=== PATIENT | male | born 1945 | race Caucasian/White ===

== ENCOUNTER → 2021-07-14 11:34 | Outpatient (BNVA) | payer OTHER, SELFPAY | PROVIDERS: PCP Internal Medicine; Visit Provider Nurse Practitioner Family | DX: Z13.89 Encounter for screening for other disorder (principal) ==

== ENCOUNTER → 2022-02-26 10:04 | Outpatient (BNVA) | payer OTHER, SELFPAY | PROVIDERS: PCP Internal Medicine; Visit Provider Nurse Practitioner Family | DX: Z13.89 Encounter for screening for other disorder (principal) ==

== ENCOUNTER 2022-08-29 09:36 | Outpatient (AMB) | payer OTHER, SELFPAY ==
--- NOTE | 2022-08-29 09:39 | MHC.OFFVIS ---
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 The CPAP compliance report (05/31/22-08/28/22) reviewed with patient. Pt is on APAP 5-20 cmH2O. Usage days 97%, average usage 6 hours and 50 min. AHI 1.1 , median pressure is 8.3 Pt reports his memory is stable, denies difficulty of daily activity or driving but still has moment of forgetfulness. He uses calendar and daily routine diary which is help him to remind appointments. Pt currently takes Namenda 10 mg BID and Rivastigmine 4.6 mg TD daily. Pt tolerate with Rivastigmine patch. Pt did not tolerate Donepezil, he had massive diarrhea. 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 He meets his friends weekends.? Denies depression or anxiety. [facility] Medical History (Updated 12/20/21 @ 15:23 by June Hairston CNP) HLD (hyperlipidemia) HTN (hypertension) Osteoarthritis Surgical History (Updated 02/26/22 @ 10:12 by Sunshine Gonzalez CMA) H/O tooth extraction Hx of carpal tunnel repair Hx of knee surgery Hx of umbilical hernia repair Family History Mother HTN (hypertension) Father HTN (hypertension) Social History (Updated 08/29/22 @ 09:43 by Sunshine Gonzalez CMA) Household Members: Spouse Alcohol intake: current Alcohol intake frequency: holidays/special occasions only Patient Tobacco Use Status: Never used Tobacco Review of Systems Const All systems reviewed & are unremarkable except as noted in HPI and below Physical Exam Vital Signs: Last Vital Signs Pulse 61 08/29/22 09:43 BP 130/96 H 08/29/22 09:43 Pulse Ox 96 08/29/22 09:43 Const General: cooperative and healthy appearing Nutritional Appearance: average body habitus Orientation/consciousness: patient oriented x3 HEENT Head: Yes normocephalic Neck Neck: Yes full ROM and Yes supple Resp Effort & Inspection: normal respiratory effort and able to speak in complete sentences Neuro General: patient oriented x3, moves all extremities, no focal motor deficits and CN's II-XI intact bilaterally Cognition (Neuro): normal cognition Gait exam (Neuro): Other gait observations present (good stride but slow walking. ) Motor exam (neuro): 5/5 motor strength present throughout and no tremor noted Psych Appearance: grossly normal Mental Status: mental status grossly normal Speech and movement: Normal speech and movement present Affect: normal affect Attitude: cooperative Assessment & Plan Assessment & Plan (1) Dementia: Comment: A repeat Neuropsychology evaluation done in 11/2021. Result was consistent with a mild level of dementia. Code(s): F03.90 - Unspecified dementia, unspecified severity, without behavioral disturbance, psychotic disturbance, mood disturbance, and anxiety (2) EMELY on CPAP: Code(s): G47.33 - Obstructive sleep apnea (adult) (pediatric); Z99.89 - Dependence on other enabling machines and devices Plan Continue to use CPAP at [id number]. Stressed compliance, nightly and more than 4 hours. Continue to take memantine 10 mg BID and rivastigmine 4.6 mg TD patch daily. Monitor the side effects. Continue to do daily physical exercise and engage in cognitive and social activity. Maintain healthy and balanced diet.? Coding Level of Care Code Est Pt Level 4 (32936) Diagnoses Dementia F03.90 EMELY on CPAP G47.33; Z99.89
[2022-08-29 09:43] VITALS: BP 130/96; PULSE 61; O2SAT 96
== END 2022-08-29 10:06 | disposition home or self-care (01) ==
PROVIDERS: Visit Provider Nurse Practitioner Family
DX: F03.90 Unspecified dementia, unspecified severity, without behavioral disturbance, psychotic disturbance, mood disturbance, and anxiety (principal); G47.33 Obstructive sleep apnea (adult) (pediatric); Z99.89 Dependence on other enabling machines and devices
CPT/HCPCS: 99214

== ENCOUNTER → 2022-08-29 09:36 | Outpatient (BNVA) | payer OTHER, SELFPAY | PROVIDERS: Visit Provider Nurse Practitioner Family ==

== ENCOUNTER 2023-09-02 10:12 | Outpatient (AMB) | payer OTHER, SELFPAY ==
--- NOTE | 2023-09-02 10:23 | A.OFFVIS_ITS ---
Vital Signs 09/02/23 10:26 Height 6 ft Weight 200 lb 2 oz BMI 27.1 BP 90/58 L Blood Pressure Location Rt brachial Position Sitting Respiration 16 Pulse 79 Pulse Source Pulse Oximeter Pulse Oximetry (%) 94 Oxygen Delivery Method Room Air Intake Visit Reasons: 1yr follow up EMELY - LVM w/add Intake Note: Pt presents for one year follow up for EMELY. Manager House Required: No Allergies Seasonal Allergies Allergy (Mild, Verified 09/02/23 10:25) Itching Medication List - Last Reconciled 09/02/23 by Deysi Shannon MD citalopram 10 mg PO DAILY diltiazem HCl ER (DILT-XR) 120 mg PO DAILY glucosamine HCl 3,000 mg PO DAILY latanoprost 0.005% 1 drp ophthalmic (eye) DAILY lisinopril 2.5 mg PO DAILY loratadine 10 mg PO DAILY PRN memantine 10 mg PO BID rivastigmine 1 patch transdermal DAILY 90 days rosuvastatin 5 mg PO BEDTIME tamsulosin 0.4 mg PO DAILY HPI Comments Details: 78 y/o male patient presents for follow up of dementia and EMELY on CPAP. In the past month he has been sleeping from 12am to 3.30 pm and does not use CPAP consistently 90 day compliance report-06/04-09/03 98%usgae Average hrs used days 6hrs AHI 1 Pressure 5-20 He wakes up 2 days a week -in the morning to do volunteering ( cat skilled nursing)and watch car race. He is not exercising and has poor motivation. He walks the dog occasionally SHort term memory is mildly worse. Pt currently takes Namenda 10 mg BID and Rivastigmine 4.6 mg TD daily. Pt tolerate with Rivastigmine patch. Pt did not tolerate Donepezil, he had massive diarrhea. [facility] Medical History Osteoarthritis HTN (hypertension) HLD (hyperlipidemia) Surgical History H/O tooth extraction Hx of umbilical hernia repair Hx of knee surgery Hx of carpal tunnel repair Family History Mother HTN (hypertension) Father HTN (hypertension) Social History Household Members: Spouse Alcohol intake: current Alcohol intake frequency: holidays/special occasions only Patient Tobacco Use Status: Never used Tobacco Physical Exam Vital Signs: Last Vital Signs Pulse 79 09/02/23 10:26 Resp 16 09/02/23 10:26 BP 90/58 L 09/02/23 10:26 Pulse Ox 94 09/02/23 10:26 Oxygen Delivery Method Room Air 09/02/23 10:26 BMI result Body Mass Index 27.1 Const General: cooperative and healthy appearing Nutritional Appearance: average body habitus Orientation/consciousness: patient oriented x3 HEENT Head: Yes normocephalic Neck Neck: Yes full ROM and Yes supple Resp Effort & Inspection: normal respiratory effort and able to speak in complete sentences Neuro General: patient oriented x3, moves all extremities, no focal motor deficits and CN's II-XI intact bilaterally Cognition (Neuro): normal cognition Gait exam (Neuro): Other gait observations present (good stride but slow walking. ) Motor exam (neuro): 5/5 motor strength present throughout and no tremor noted Psych Appearance: grossly normal Mental Status: mental status grossly normal Speech and movement: Normal speech and movement present Affect: normal affect Attitude: cooperative Assessment & Plan Assessment & Plan (1) Dementia: Comment: A repeat Neuropsychology evaluation done in 11/2021. Result was consistent with a mild level of dementia. Code(s): F03.90 - Unspecified dementia, unspecified severity, without behavioral disturbance, psychotic disturbance, mood disturbance, and anxiety Category: Medical (2) EMELY on CPAP: Code(s): G47.33 - Obstructive sleep apnea (adult) (pediatric); Z99.89 - Dependence on ot her enabling machines and devices Category: Medical Plan Continue to use CPAP at [id number]. Stressed compliance, nightly and more than 4 hours. Continue to take memantine 10 mg BID and rivastigmine 4.6 mg TD patch daily. Monitor the side effects. Increase physical activity Discussed regular sleep schedule - adding more volunteering days Increase citaloprma 40mg qd Continue to do daily physical exercise and engage in cognitive and social activity. Maintain healthy and balanced diet.? Medications: Changed From citalopram 10 mg PO DAILY To citalopram 40 mg PO DAILY 30 tabs 6RF Coding Level of Care Code Est Pt Level 4 (87806) Diagnoses Dementia F03.90 EMELY on CPAP G47.33; Z99.89
[2023-09-02 10:26] VITALS: BP 90/58; PULSE 79; RESP 16; O2SAT 94; BMI 27.1
== END 2023-09-02 10:52 | disposition home or self-care (01) ==
PROVIDERS: PCP Internal Medicine; Visit Provider Psychiatry & Neurology Neurology
DX: F03.90 Unspecified dementia, unspecified severity, without behavioral disturbance, psychotic disturbance, mood disturbance, and anxiety (principal); G47.33 Obstructive sleep apnea (adult) (pediatric); Z99.89 Dependence on other enabling machines and devices
CPT/HCPCS: 99214

== ENCOUNTER → 2023-09-02 10:12 | Outpatient (BNVA) | payer OTHER, SELFPAY | PROVIDERS: PCP Internal Medicine; Visit Provider Psychiatry & Neurology Neurology ==

== ENCOUNTER 2024-09-02 09:08 | Outpatient (AMB) | payer OTHER, SELFPAY ==
--- NOTE | 2024-09-02 09:12 | MHC.OFFVIS ---
Vital Signs 09/02/24 09:13 Height 6 ft Weight 202 lb 2 oz BMI 27.4 Pulse 77 Pulse Source Pulse Oximeter Pulse Oximetry (%) 96 Oxygen Delivery Method Room Air Intake Visit Reasons: 1yr follow up EMELY Intake Note: Patient presents 1 year follow up for EMELY- compliance in chart. Accompanied by: Self / Same As Patient Allergies Seasonal Allergies Allergy (Mild, Verified 09/02/24 09:16) Itching HPI Comments Details: 78 y/o male patient presents for follow up of dementia and EMELY on CPAP. In the past month he has been sleeping from 12am to 3.30 pm and does not use CPAP consistently EMELY Compliance report 05/2024- 08/2024 total Avg 5 hours and 35min >4 hours Med press 8.1 and Med Leaks 0.2 and AHI is 0.1/hr He lost his May 2024, and moved to [facility]. He uses the full mask and washes it, changes filters prn, and fills reservoir with distilled water daily. He feels refreshed in the AM with his CPAP use. He goes to bed at midnight and wakes up at 9am, with 2 bathroom breaks. His sister lives next door and they have dinner together.Son handles his finances. He stays active with his son, walks daily, drives to worship once a week. STM is mildly worse, word recall is okay, is late for appointments, and orientation is good. Pt currently takes Namenda 10 mg BID and Rivastigmine 4.6 mg TD daily. Pt tolerate with Rivastigmine patch and did not tolerate Donepezil, d/t massive diarrhea. Mood and diet is stable. [facility] Medical History Osteoarthritis HTN (hypertension) HLD (hyperlipidemia) Surgical History H/O tooth extraction Hx of umbilical hernia repair Hx of knee surgery Hx of carpal tunnel repair Family History Mother HTN (hypertension) Father HTN (hypertension) Social History Household Members: Spouse Alcohol intake: current Alcohol intake frequency: holidays/special occasions only Patient Tobacco Use Status: Never used Tobacco Physical Exam Vital Signs: Last Vital Signs Pulse 77 09/02/24 09:13 Pulse Ox 96 09/02/24 09:13 Oxygen Delivery Method Room Air 09/02/24 09:13 BMI result Body Mass Index 27.4 Const General: cooperative and healthy appearing Nutritional Appearance: average body habitus Orientation/consciousness: patient oriented x3 HEENT Head: Yes normocephalic Eyes Pupils: Equal, round and reactive pupils present Neck Neck: Yes full ROM and Yes supple Resp Effort & Inspection: normal respiratory effort and able to speak in complete sentences Neuro Other: mild upper extremity tremor noted Gait is antalgic stooped posture, swings one arm. on latanaprost iop General: patient oriented x3, moves all extremities, no focal motor deficits and CN's II-XI intact bilaterally Cranial nerves: Yes Equal, round and reactive pupils present, Yes Normal accommodation reflex present, Yes Normal facial strength present, Yes Midline tongue present and Yes Ability to bilaterally rotate head present Cognition (Neuro): normal cognition Gait exam (Neuro): Antalgic gait present and Other gait observations present (good stride but slow walking. ) Motor exam (neuro): 5/5 motor strength present throughout Psych Appearance: grossly normal Speech and movement: Normal speech and movement present Affect: normal affect Attitude: cooperative Results Reviewed Results Reviewed: EMELY Compliance report 05/2024- 08/2024 total Avg 5 hours and 35min >4 hours Med press 8.1 and Med Leaks 0.2 and AHI is 0.1/hr 11/2021 Neurology Cognitive Behavior Evaluation for Dementia Recommendation Rivastigmine, Donepezil, Namenda, and CPAP therapy. Assessment & Plan Assessment & Plan (1) EMELY on CPAP: Code(s): G47.33 - Obstructive sleep apnea (adult) (pediatric); Z99.89 - Dependence on other enabling machines and devices Category: Medical (2) Dementia: Comment: A repeat Neuropsychology evaluation done in 11/2021. Result was consistent with a mild level of dementia. Code(s): F03.90 - Unspecified dementia, unspecified severity, without behavioral disturbance, psychotic disturbance, mood disturbance, and anxiety Category: Medical Qualifiers: Dementia type: Alzheimer's Alzheimer's disease onset: unspecified onset Dementia severity: mild Dementia behavioral or psychological symptom: with anxiety Qualified Code(s): G30.9 - Alzheimer's disease, unspecified; F02.A4 - Dementia in other diseases classified elsewhere, mild, with anxiety Plan Continue to use CPAP at [id number], patient experiences refreshed sleep. Dementia continue memantine 10 mg BID and rivastigmine 4.6 mg TD patch daily. Continue to walk daily, and stay active with the car races, volunteering in worship. Anxiety Continue Citalopram 40mg qd. F/U in one year or sooner as needed. Medications: Refilled rivastigmine 1 patch transdermal DAILY 90 patches 1RF 90 days Patient Instructions: Sleep Hygiene provided: set a scheduled bedtime and wake time to help regulate the circadian rhythm and balance the release of pituitary hormones. Sleep in a dark room, temperatures below 68 degrees, and no devices n bed. Limit caffeinated products 6 hours prior to bed, and limit fluids 2-4 hours prior to bed. Gentle night yoga, diffusing essential oils, and playing soft music can be relaxing. Coding Level of Care Code Tele Est Pt Level 4 (27231) Diagnoses EMELY on CPAP G47.33; Z99.89 Mild Alzheimer's dementia with anxiety, unspecified timing of dementia onset G30.9; F02.A4 Dementia type: Alzheimer's Alzheimer's disease onset: unspecified onset Dementia severity: mild Dementia behavioral or psychological symptom: with anxiety Time Spent (min) 25 Comment dementia stable r/f rivastigmine patch.
[2024-09-02 09:13] VITALS: PULSE 77; O2SAT 96; BMI 27.4
--- OUTSIDE RECORDS SUMMARY | 2024-09-02 09:37 | XMS_ITS | Patient Health Record ---
[facility] Address [address] [place] [address] Care Team Providers Care Artillery Officer Name Role Phone Nay SAUL, Gregorio Primary Care Provider Unavail able Luis Alberto Rod Unavailable [phone] Allergies Allergen (clinical drug ingredient) Drug/Non Drug Allergy documented on EMR Reaction Allergy Type Onset Date Status trovafloxacin Trovafloxacin (uncoded) rash Allergy Active Reason For Referral No Information Medications Medication SIG (Take, Route, Frequency, Duration) Notes Start Date End Date Status Rosuvastatin Calcium 5 MG 1 tablet Orall y Once a day; Duration: 30 day(s) Active Rivastigmine 4.6 MG/24HR 1 patch to skin Transdermal Once a day; Duration: 30 day(s) Active Lisinopril 2.5 MG 1 tablet Orally Once a day; Duration: 30 day(s) Active Claritin 10 MG 1 tablet Orally Once a day 11/05/2013 Active Memantine HCl 10 MG 1 tablet Orally Once a day; Duration: 30 day(s) Active Citalopram Hydrobromide 10 MG 1 tablet Orally Once a day; Duration: 30 day(s) Active Tamsulosin HCl 0.4 MG TAKE ONE CAPSULE B Y MOUTH AT BEDTIME . TAKE 1/2 HOUR AFTER LAST MEAL OF THE DAY Oral; Duration: 30 Active Lisinopril 2.5 MG 1 tablet Orally Once a day; Duration: 30 day(s) Not-Taking dilTIAZem HCl 120 MG Oral; Duration: 90 Active Glucosamine HCl-MSM Active Rivastigmine 4.6 MG/24HR 1 patch to skin Transdermal Once a day Not-Takin g Memantine HCl 10 MG 1 tablet Orally twic e a day Not-Taking Night Splint AFO - L1930 as directed Active Latanoprost 0.005 % 1 drop into affected eye in the evening Ophthalmic Once a day Active Latanoprost 0.005 % 1 drop into affected eye in the evening Ophthalmic Once a day Not-Taking Physical Therapy . . . 2-3x/week; Duration: 3-4 weeks Active Rosuvastatin Calcium 5 MG 1 tablet Orall y Once a day Not-Taking Atorvastatin Calcium 10 MG Oral; Duration: 90 Not-Takin g Citalopram Hydrobromide 10 MG 1 tablet Orally Once a day Not-Taking VESIcare 10 MG Oral; Duration: 60 Not-Taking Piroxicam 20 MG 1 capsule with food Orally Once a day; Duration: 30 day(s) 10/04/2015 Not-Taking Social History Tobacco use other than smoking: Question Answer Notes Are you an other tobacco user? No Problems Problem Type SNOMED Code ICD Code Onset Dates Problem Status W/U Status Risk Notes Problem Tinea unguium (349905773) Tinea unguium (B35.1) Active confirmed Problem Acquired hammer toe of right foot (7352333957027 105) Other hammer toe(s) (acquired), right foot (M20.41) Active confirmed Problem Acquired hammer toe of left foot ([id number] 103) Other hammer toe(s) (acquired), left foot (M20.42) Active confirmed Plan Of Treatment Pending Test Test Name Order Date *Liver Function Test (LFT) 03/04/2015 X ray : Foot, left 3V 09/06/2022 X ray : Foot, right 3V 09/06/2022 [id number] Destruction, -11/24/2013 [id number] Destruction, -12/24/2013 Insurance Providers Payer Name Payer Address Payer Phone Subscriber Number Group Number Insured Name Patient Relationship to Insured Coverage Start Date Coverage End Date [employer]age [address] [place] [address] [phone] [id number] [place] Self - patient is the insured Medical (General) History Medical History History ICD Code Chicken pox Hypertension Measles Mumps Dementia covid-19 Vascular phlebitis (clots) Surgical History Surgery Date(Month/Year) umbilical hernia repair knee surgery
--- OUTSIDE RECORDS SUMMARY | 2024-09-02 09:37 | XMS_ITS | Clinical Summary ---
Author Organization [facility] Address [address] [place] [address] Care Team Providers Care Instrument Lens Generator Name Role Phone Unavailable Primary Care Provider Unavailabl e Social History Tobacco Use Types Packs/Day Years Used Date Smoking Tobacco: Never Assessed Sex and Gender Information Value Date Recorded Sex Assigned at Not on file Legal Sex Male 10:33 AM EST Gender Identity Not on file Sexual Orientation Not on file Plan of Treatment Health Maintenance Due Date Last Done Comments DTaP,Tdap,and Td Vaccines (1 - Tdap) 06/24/1966 Pneumococcal Vaccine: 50+ Ye ars (1 of 1 - PCV) 06/24/1997 Zoster Vaccines (1 of 2) 06/24/1997 Cholesterol Screening (Lipid Panel) 01/09/2022 Falls Risk Assessment 01/09/2022 Hepatitis C Screening 01/09/2022 Social Influencers of Health Screening 01/09/2022 RSV Immunization Adult Patie nts (1 - 1-dose 75+ series) 06/24/2022 COVID-19 Vaccine (1 - 2023-2 5 season) 2023 Depression Screening 02/12/2024 Influenza Vaccine (#1) 2024 HIB Vaccines Aged Out No longer eligi ble based on patient's age to complete this topic HPV Vaccines Aged Out No longer eligi ble based on patient's age to complete this topic Hepatitis A Vaccines Aged Out No long er eligible based on patient's age to complete this topic Hepatitis B Vaccines Aged Out No long er eligible based on patient's age to complete this topic IPV Vaccines Aged Out No longer eligi ble based on patient's age to complete this topic MMR Vaccines Aged Out No longer eligi ble based on patient's age to complete this topic Meningococcal ACWY Vaccine Aged Out N o longer eligible based on patient's age to complete this topic Meningococcal B Vaccine Aged Out No l onger eligible based on patient's age to complete this topic RSV Immunization Patients Un mehdi 20 months Aged Out No longer eligible b ased on patient's age to complete this topic Varicella Vaccines Aged Out No longer eligible based on patient's age to complete this topic
--- OUTSIDE RECORDS SUMMARY | 2024-09-02 09:37 | XMS_ITS | Encounter Summary ---
Author Organization [facility] Address [address] [place] [id number] Phone Care Team Providers Care Bull Gang Worker Name Role Phone Gregorio Tee MD Primary Care Provider [phone] Encounter Details Date Type Department Care Team (Latest Contact Info) Description 10/08/2019 Transcribe Orders Virtual Department [address] [place] [address] Aristeo Becerra MD [address] [place] [id number] [email or web address] Encounter for pre-operative laboratory testing (Primary Dx) Social History Tobacco Use Types Packs/Day Years Used Date Smoking Tobacco: Never Smokeless Tobacco: Never Alcohol Use Standard Drinks/Week Comments Yes 1 (1 standard drink = 0.6 oz pur e alcohol) per month Sex and Gender Information Value Date Recorded Sex Assigned at Not on file Legal Sex Male 1:38 PM EDT Gender Identity Not on file Sexual Orientation Not on file documented as of this encounter Plan of Treatment Not on file documented as of this encounter Results * COVID-19 PCR Order (10/12/2019 12:30 PM EDT) Specimen Source NASOPHARYNGEAL SWAB (CAREER TECHNICAL SUPERVISOR) [facility] COVID-19 Comment [id number] [facility] COVID Testing Status Sent to [facility] Other 10/12/2019 12:3 0 PM EDT 10/12/2019 1:08 PM EDT us Aristeo Becerra MD BODY FLUIDS AND STOOLS ORDERAB LES Final Result [facility] [address] [place] [address] documented in this encounter Visit Diagnoses Diagnosis Encounter for pre-operative laboratory testing- Primary documented in this encounter Care Teams Bull Gang Worker Relationship Specialty Start Date End Date Gregorio Tee MD [address] [address] PCP - General Internal Medicine 12/11/16 documented as of this encounter Additional Source Comments The information contained in this document represents components of the legal health record. It is not the complete legal health record.[facility]
--- OUTSIDE RECORDS SUMMARY | 2024-09-02 09:38 | XMS_ITS ---
Author Name [facility] Care Team Organization Name Specialty Phone Email Start Date End Da te [facility] Primary Care 08/29/20232023
== END 2024-09-02 09:57 | disposition home or self-care (01) ==
PROVIDERS: PCP Internal Medicine; Supervising Provider Physician Assistant Medical; Visit Provider Physician Assistant Medical
DX: G47.33 Obstructive sleep apnea (adult) (pediatric) (principal); Z99.89 Dependence on other enabling machines and devices; G30.9 Alzheimer's disease, unspecified; F02.A4 Dementia in other diseases classified elsewhere, mild, with anxiety
CPT/HCPCS: 99214